=== PATIENT | male | born 1955 | race Caucasian/White ===

== ENCOUNTER → 2017-11-18 | Outpatient (CLI) | payer MEDICARE | END | disposition home or self-care (01) | LOC: PCVCCLINIC 12:44 | PROVIDERS: ATTEND Internal Medicine | DX: I25.10 Atherosclerotic heart disease of native coronary artery without angina pectoris (principal); I71.2 Thoracic aortic aneurysm, without rupture; I42.9 Cardiomyopathy, unspecified; E78.5 Hyperlipidemia, unspecified; I73.9 Peripheral vascular disease, unspecified; I69.30 Unspecified sequelae of cerebral infarction; I33.0 Acute and subacute infective endocarditis; Z87.891 Personal history of nicotine dependence; Z79.82 Long term (current) use of aspirin | CPT/HCPCS: 80061; 93005; G0463 ==

== ENCOUNTER → 2018-05-21 | Outpatient (CLI) | payer MEDICARE ==
--- NOTE | 2018-05-21 12:12 | PCVCIMAG ---
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, aortic root repair 2D Dimensions IVSd: 10.53 (7-11mm)LVOT Diam: 27.74 (18-24mm) LVDd: 49.78 mm PWd: 10.41 (7-11mm)Ascending Ao: 32.08 (22-36mm) LVDs: 38.61 (25-40mm) Left Atrium: 38.39 (27-40mm) Aortic Root: 31.83 mm LV Single Plane 4CH: 52.28 % LV Single Plane 2CH: 38.92 % Biplane EF: 45.8 % Volumes Left Atrial Volume (Systole) Single Plane 4CH: 76.37 mLSingle Plane 2CH: 74.47 mL LA ESV Index: 37.00 mL/m2 Aortic Valve AoV Peak Sarthak.: 1.37 m/s AO Peak Gr.: 7.48 mmHgLVOT Max P.00 mmHg AO Mean Gr.: 3.33 mmHgLVOT Mean P.91 mmHg AO V2 Mean: 0.85 m/sLVOT Max V: 1.00 m/s AO V2 VTI: 26.88 cmLVOT Mean V: 0.64 m/s MELQUIADES (VTI): 4.70 ut1DMMO V1 VTI: 20.91 cm MELQUIADES Vmax: 4.41 cm2 SV (LVOT): 126.28 mL Mitral Valve E/A Ratio: 0.8 MV Decel. Time: 500.11 ms MV E Max Sarthak.: 0.42 m/s MV A Sarthak.: 0.54 m/s IVRT: 162.63 ms Pulmonary Valve PV Peak Sarthak.: 0.90 m/sPV Peak Gr.: 3.26 mmHg Pulmonary Vein P Vein S: 0.25 m/sP Vein A: 0.51 m/s P Vein D: 0.34 m/sP Vein A Dur.: 134.9 msec P Vein S/D Ratio: 0.74 Tricuspid Valve TR Peak Sarthak.: 2.73 m/s TR Peak Gr.: 29.87 mmHg Left Ventricle The left ventricle is normal size. There is normal left ventricular wall thickness. Left ventricular systolic function is at the lower limits of normal. LVEF is 50%. Mild diastolic dysfunction is present (impaired relaxation pattern). Right Ventricle The right ventricle is normal size. The right ventricular systolic function is normal. Atria Left atrium is mildly dilated. Right atrium is mildly dilated. Aortic Valve Normally functioning #28 homograft aortic valve replacement. Trace to mild aortic regurgitation. There is no aortic valvular stenosis. Calculated aortic valve area is 4.4 cm2 with maximum pressure gradient of 7 mmHg and mean pressure gradient of 3 mmHg. Mitral Valve The mitral valve is normal in structure. Mild mitral regurgitation. No evidence of mitral valve stenosis. Tricuspid Valve The tricuspid valve is normal in structure. Mild tricuspid regurgitation with PAP of 37 mmHg. Pulmonic Valve The pulmonary valve is normal in structure. Mild pulmonic regurgitation. Great Vessels The aortic root is normal in size. IVC is normal in size and collapses >50% with inspiration. Pericardium There is no pericardial effusion. There is no pleural effusion. <Conclusion> Left ventricular systolic function is at the lower limits of normal. LVEF is 50%. Mild diastolic dysfunction Left atrium is mildly dilated. Normally functioning #28 [employer] homograft aortic valve replacement. Trace to mild aortic regurgitation, no stenosis. The mitral valve is normal in structure. Mild mitral regurgitation. Mild tricuspid regurgitation with pulmonary artery pressure of 37 mmHg. 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
== END | disposition home or self-care (01) ==
LOC: PCVCIMAG 10:31
PROVIDERS: ATTEND Internal Medicine
DX: I08.1 Rheumatic disorders of both mitral and tricuspid valves (principal); I25.10 Atherosclerotic heart disease of native coronary artery without angina pectoris; I42.9 Cardiomyopathy, unspecified; I71.2 Thoracic aortic aneurysm, without rupture; E78.5 Hyperlipidemia, unspecified; I73.9 Peripheral vascular disease, unspecified; I33.0 Acute and subacute infective endocarditis; I69.30 Unspecified sequelae of cerebral infarction; Z87.891 Personal history of nicotine dependence
CPT/HCPCS: 36415; 80061; 93005; 93306; G0463

== ENCOUNTER → 2018-11-24 | Outpatient (CLI) | payer MEDICARE | END | disposition home or self-care (01) | LOC: PCVCCLINIC 15:37 | PROVIDERS: ATTEND Internal Medicine | DX: I42.9 Cardiomyopathy, unspecified (principal); I25.10 Atherosclerotic heart disease of native coronary artery without angina pectoris; I50.9 Heart failure, unspecified; I71.2 Thoracic aortic aneurysm, without rupture; E78.5 Hyperlipidemia, unspecified; I73.9 Peripheral vascular disease, unspecified; I33.0 Acute and subacute infective endocarditis; I69.30 Unspecified sequelae of cerebral infarction; Z95.2 Presence of prosthetic heart valve; Z90.09 Acquired absence of other part of head and neck; Z80.3 Family history of malignant neoplasm of breast; Z82.49 Family history of ischemic heart disease and other diseases of the circulatory system; Z87.891 Personal history of nicotine dependence; Z72.89 Other problems related to lifestyle | CPT/HCPCS: 36415; 80061; 93005; G0463 ==